=== PATIENT | male | born 1955 | race Caucasian/White ===

== ENCOUNTER → 2023-09-22 | Outpatient (CLI) | payer MEDICARE, OTHER, SELFPAY ==
--- NOTE | 2023-09-22 08:31 | MRI_ITS ---
STUDY: MR Orbits and Brain WO/W Contrast 09/24/2023 5:05 PM REASON FOR EXAM: Male, 68 years old. JUCTIONAL SCOTOMA,OPTIC ATROPY L and gt;R, COMPRESSIVE ETIOLOGY @ [facility] COMPARISON: None TECHNIQUE: Standardized multiplanar fat and water weighted pulse sequences were obtained. MR Orbits and Brain WO/W Contrast 19cc clariscan FINDINGS: There is mild cerebral atrophy with widening of the extra-axial spaces and ventricular dilatation. There are a limited number of small white matter hyperintensities, distributed throughout the deep white matter tracts of the cerebral hemispheres, consistent with mild chronic white matter ischemic changes. There is mild prominence of the vermian folia, consistent with atrophy of the vermis. The cerebellar hemispheres are normal. Normal bilateral basal ganglia. Normal thalami. There is no extra-axial fluid accumulation. Normal flow voids within the major intracranial circulation suggesting patency by spin echo criteria. Normal sella turcica, pituitary gland, infundibular stalk, optic chiasm and hypothalamus. Normal tectal plate and pineal gland. Normal midbrain, lucinda and medulla. Normal basal cisterns. Normal bilateral temporal bones. Normal bilateral internal auditory canals. No demonstrated orbital abnormality, within the constraints of a routine brain study. Normal visualized paranasal sinuses. Normal calvarium and skull base. Normal visualized soft tissue structures. Normal visualized upper cervical spine. Aspect score 10 MRI/Brain W/WO Contrast IMPRESSION: (NOT LISTED IN ORDER OF SIGNIFICANCE) There are no acute intracranial findings. Electronically Signed: Victor Hugo Tyler MD at 17:09 EDT ,
[2023-09-22 09:07] LABS: CREATININE FINGERSTICK < 1.0 mg/dL (0.70-1.30); EGFR FINGERSTICK > 60.0000 mL/min (>60)
== END | disposition home or self-care (01) ==
LOC: MRI 08:16
PROVIDERS: PCP Nurse Practitioner Family; Referring Provider Ophthalmology; Visit Provider Ophthalmology
DX: Z01.812 Encounter for preprocedural laboratory examination (principal); H47.20 Unspecified optic atrophy
CPT/HCPCS: 70553; A9575